=== PATIENT | female | born 1995 | race Caucasian/White ===

== ENCOUNTER 2024-07-21 20:40 | Emergency (ER) | payer MEDICAID, SELFPAY ==
[2024-07-21 20:54] VITALS: BP 132/68; PULSE 85; RESP 18; TEMP 36.5; O2SAT 97; BMI 21.2
[2024-07-21] MEDS: ONDANSETRON 4 MG/2 ML INJ IV (21:20)
[2024-07-21 21:23] LABS: Add Manual Diff / Slide Review NO; Basophils Absolute Auto 100 /uL (0-100); Basophils Percent Auto 0.8 % (0-2); Eosinophils Absolute Auto 600 /uL (0-450); Eosinophils Percent Auto 6.7 % (2-4); Hematocrit 44.8 % (36-46); Lymphocytes Absolute Auto 4400 /uL (1100-4500); Lymphocytes Percent Auto 47.4 % (25-40); Mean Corpuscular HGB Conc 33.6 % (30-36); Mean Corpuscular Hemoglobin 30.8 PG (26-34); Mean Corpuscular Volume 91.7 fL (80-100); Monocytes Absolute Auto 600 /uL (0-900); Monocytes Percent Auto 6.3 % (3-14); Neutrophils Absolute Auto 3600 /uL (1500-7000); Neutrophils Percent Auto 38.8 % (50-75); Platelet Count 266 X10^3/uL (150-400); Red Blood Cell Count 4.88 X10^6/uL (4.0-5.2); Red Cell Distribution Width 13.2 % (11.6-14.8); White Blood Cell Count 9.4 X10^3/uL (4.5-11.0)
[2024-07-21 21:34] LABS: Alanine Aminotransferase 21 IU/L (<35); Albumin 4.6 g/dL (3.5-5.0); Albumin Globulin Ratio 1.3 (1.0-2.8); Alkaline Phosphatase 77 U/L (38-126); Aspartate Aminotransferase 25 IU/L (14-36); BUN Creatinine Ratio 11.6 (6-22); Bilirubin Total 0.2 mg/dL (0.2-1.3); Blood Urea Nitrogen 10 mg/dL (7-17); Calcium 9.1 mg/dL (8.4-10.2); Carbon Dioxide 24 mmol/L (22-32); Chloride 106 mmol/L (98-107); Estimated Glomerular Filt Rate > 60 mL/min (>60); Globulin 3.6 g/dL (1.7-4.1); Glucose 98 mg/dL (70-100); HEMOLYSIS < 15 (0-50); Lipase 259 U/L (23-300); Potassium 3.9 mmol/L (3.4-5.1); Sodium 140 mmol/L (137-145); Total Protein 8.2 g/dL (6.3-8.2)
[2024-07-21 23:20] VITALS: PULSE 77; O2SAT 97
[2024-07-21 23:30] VITALS: O2SAT 97
[2024-07-21 23:31] VITALS: BP 112/77; PULSE 89; TEMP 36.8; O2SAT 97
[2024-07-22] VITALS: PULSE 89; O2SAT 97
[2024-07-22 00:30] VITALS: PULSE 89; O2SAT 97
[2024-07-22 01:00] VITALS: PULSE 90; O2SAT 97
[2024-07-22 01:30] VITALS: PULSE 86; RESP 18; O2SAT 97
[2024-07-22 02:00] VITALS: PULSE 90; O2SAT 97
[2024-07-22 02:07] VITALS: BP 109/68; O2SAT 96
--- NOTE | 2024-07-22 02:22 | ED_ITS ---
HPI - Abdominal Pain General Chief Complaint: Abdominal Pain Stated Complaint: lower abd pain Time Seen by Provider: 07/22/24 00:52 Source: patient Mode of arrival: Ambulatory History of Present Illness HPI narrative: 28-year-old female without prior abdominopelvic surgeries, complains of right lower abdominal pain since yesterday. Denies prior history of ovarian cysts. Has had some nausea without emesis. No loose stools. No hard stools, no black or red stools. No dysuria or frequency of urination. No injury, trauma, new activities. No vaginal bleeding. She feels some improvement, was worse prior Related Data Allergies Allergy/AdvReac Type Severity Reaction Status Date / Time No Known Drug Allergies Allergy Verified 07/21/24 20:54 Patient History Social History Smoking Status: Never smoker Smoking Status: Never smoker Exam Narrative Exam Narrative: GENERAL: Well-developed patient, in mild distress. HEAD: Atraumatic. Normocephalic. EYES: Pupils equal round and reactive. Extraocular motions intact. No scleral icterus. No injection or drainage. ENT: Nose without bleeding, purulent drainage. Throat without erythema, tonsillar hypertrophy or exudate. Airway patent. NECK: Trachea midline. Non tender CARDIOVASCULAR: Regular rate and rhythm without murmurs, gallops, or rubs. RESPIRATORY: Clear to auscultation. Breath sounds equal bilaterally. No wheezes, rales, or rhonchi. GASTROINTESTINAL: No significant discomfort on ventral abdominal exam, some discomfort on right leg raise. EXTREMITIES: No edema or joint tenderness. BACK: Nontender without deformity or crepitance. No flank tenderness right or left side. NEURO: AOx3. Motor functions grossly nonfocal SKIN: No rash or erythema of visible areas Initial Vital Signs Initial Vital Signs: Vital Signs Temperature 97.7 F 07/21/24 20:54 Pulse Rate 85 07/21/24 20:54 Respiratory Rate 18 07/21/24 20:54 Blood Pressure 132/68 07/21/24 20:54 Pulse Oximetry 97 07/21/24 20:54 Oxygen Delivery Method Room Air 07/21/24 20:54 Course Orders Ordered: ED Orders 07/21/24 21:15 Complete Blood Count AUTO DIFF Stat Comprehensive Metabolic Panel Stat Lipase Stat Discontinued Medications Ondansetron HCl (Ondansetron 4 Mg/2 Ml Inj) 4 mg IV NOW PRN PRN Reason: Nausea And Vomiting Last Admin: 07/21/24 21:20 Dose: 4 mg Documented By: [email or web address] Ondansetron HCl (Ondansetron 4 Mg Odt) 4 mg PO NOW PRN PRN Reason: Nausea And Vomiting Vital Signs Vital signs: Vital Signs - 8 hr 07/21/24 20:54 07/21/24 23:20 07/21/24 23:30 Temperature 97.7 F Pulse Rate 85 77 Respiratory Rate 18 Blood Pressure 132/68 Pulse Oximetry 97 97 97 Oxygen Delivery Method Room Air 07/21/24 23:31 07/21/24 23:31 07/22/24 00:00 Temperature 98.2 F Pulse Rate 89 89 Respiratory Rate Blood Pressure 112/77 Pulse Oximetry 97 97 Oxygen Delivery Method 07/22/24 00:30 07/22/24 01:00 07/22/24 01:30 Temperature Pulse Rate 89 90 86 Respiratory Rate 18 Blood Pressure Pulse Oximetry 97 97 97 Oxygen Delivery Method 07/22/24 02:00 07/22/24 02:07 07/22/24 02:07 Temperature Pulse Rate 90 Respiratory Rate Blood Pressure 109/68 Pulse Oximetry 97 96 Oxygen Delivery Method MDM - Abdominal Pain Lab Data Attestation: I reviewed the patient's lab results. Lab results narrative: Nine thousand four hundred, hemoglobin 15, platelets adequate. Basic metabolic panel unremarkable. Liver functions unremarkable, lipase normal. Urine test negative. Urine dip negative. 07/21/24 21:15 07/21/24 21:15 Labs: Lab Results 07/21/24 Range/Units 21:15 WBC 9.4 (4.5-11.0) X10^3/uL RBC 4.88 (4.0-5.2) X10^6/uL Hgb 15.0 (12.0-16.0) g/dL Hct 44.8 (36-46) % MCV 91.7 (80-100) fL MCH 30.8 (26-34) PG MCHC 33.6 (30-36) % RDW 13.2 (11.6-14.8) % Plt Count 266 (150-400) X10^3/uL Neut % (Auto) 38.8 L (50-75) % Lymph % (Auto) 47.4 H (25-40) % [place] % (Auto) 6.3 (3-14) % Eos % (Auto) 6.7 H (2-4) % Baso % (Auto) 0.8 (0-2) % Neut # (Auto) 3600 (2448-0063) /uL Lymph # (Auto) 4400 (1071-7221) /uL [place] # (Auto) 600 (0-900) /uL Eos # (Auto) 600 H (0-450) /uL Baso # (Auto) 100 (0-100) /uL Sodium 140 (137-145) mmol/L Potassium 3.9 (3.4-5.1) mmol/L Chloride 106 (98-107) mmol/L Carbon Dioxide 24 (22-32) mmol/L BUN 10 (7-17) mg/dL Creatinine 0.86 (0.52-1.04) mg/dL Estimated GFR > 60 (>60) mL/min BUN/Creatinine Ratio 11.6 (6-22) Glucose 98 (70-100) mg/dL Calcium 9.1 (8.4-10.2) mg/dL Total Bilirubin 0.2 (0.2-1.3) mg/dL AST 25 (14-36) IU/L ALT 21 (<35) IU/L Alkaline Phosphatase 77 (38-126) U/L Total Protein 8.2 (6.3-8.2) g/dL Albumin 4.6 (3.5-5.0) g/dL Globulin 3.6 (1.7-4.1) g/dL Albumin/Globulin Ratio 1.3 (1.0-2.8) Lipase 259 (23-300) U/L Point of care testing: Point of Care Testing Test Results Negative Urine Dip Bedside Urine Glucose Negative Bedside Urine Bilirubin - Negative Bedside Urine Ketone - Negative Urine Specific [place] 1.01 Bedside Urine Occult Blood - Negative Bedside Urine pH 6 Bedside Urine Protein - Negative Bedside Urine Urobilinogen - Negative Bedside Urine Nitrite - Negative Bedside Urine Leukocytes - Negative Esterase MDM Narrative Medical decision making narrative: 28-year-old female with right lower abdominal discomfort since yesterday, seems to be improving, afebrile, sirs screen negative. No tenderness anterior abdominal exam but some discomfort with left leg raise. Screening labs unremarkable, without leukocytosis, LFTs and lipase normal, urine dip negative, urine hCG negative. We discussed pelvic ultrasound imaging, declined. We discussed CT abdomen and pelvis imaging, declined. We discussed Toradol, oral medications, declined. She feels better and would like to go home now. We discussed follow up, she has no local primary care provider, she was given contact information for primary care provider line. Return precautions discussed. Discharge now home with family per patient request Discharge Plan Departure Patient Disposition: Home Clinical Impression: Abdominal pain Activity Restrictions/Additional Instructions: Ms Hazel, You hand right lower abdominal discomfort of unclear cause, no injury or new activities recalled. No fever on triage, with unremarkable vital signs. On your abdominal exam you did not seem to be tender to palpation that or other areas of your abdominal exam. Some discomfort on straight leg raise. We discussed advanced imaging such as pelvic ultrasound, declined for now. We discussed advanced imaging such as CT scan abdomen and pelvis, declined for now. Did offer Toradol or other pain control measures, declined for now. You felt better and wanted to go home, no further workup for now. Consider follow up with your regular provider. Consider calling primary care line to obtain a new provider, phone number [phone]. Return to this/nearest emergency department for any change worsening symptoms or any concerns prior. Thank you for allowing our team to evaluate you today. Referrals: Miscellaneous,[facility] [Primary Care Provider] - Stand Alone Forms: Patient Portal/API/Survey
== END 2024-07-22 02:50 | disposition home or self-care (01) ==
PROVIDERS: Emergency Provider Emergency Medicine
DX: R10.31 Right lower quadrant pain (principal)
CPT/HCPCS: 80053; 81003; 81025; 83690; 85025; 96374; 99283; 99284; J2405